=== PATIENT | male | born 1965 | race Caucasian/White ===

== ENCOUNTER 2023-08-27 23:07 | Emergency (ER) | payer OTHER, SELFPAY ==
[2023-08-27 23:12] VITALS: BP 146/96
[2023-08-27 23:41] VITALS: BMI 34.9
--- NOTE | 2023-08-28 00:56 | ED.MUSCINJ ---
HPI-Injury
General
Chief Complaint: Musculo-Skeletal Complaint
Source: patient
Time Seen by Provider: 08/28/23 00:09
Nursing documentation reviewed up to this point in time: agreed with
Travel History
Have you had any contact with someone who has COVID-19?: No
Do you have any symptoms of coronavirus? Fever > 100 degrees, chills, cough, shortness of breath, sore throat, loss of taste or smell, muscle aches, or headache?: No
History of Present Illness-Injury
Is pt an associate of [facility]?: No
Initial Injury comments:
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 He was working this evening when he tripped over a toddler who was crawling along the floor. He landed on his right knee and right elbow. He did hit his face on the carpet
but denies a direct strike. Denies any known head injury or loss of consciousness. He was concerned because he had right knee meniscal repair by Dr. Machado in the recent past. He is concerned because his the took the majority of the fall and now
hurts. Denies any other injury. Was able to ambulate and drive himself to the emergency department.
Past History
Past History
ED Past Medical History: None, HTN and Hypercholesterolemia
Social History
Personal: Single
Living: with family
Employment: Employed
Review of Systems
Review of Systems
Allergies reviewed?: Yes
All Other Systems: ROS reviewed and negative except as documented in HPI and ROS
Constitutional: Reports no symptoms
EENT: Reports no symptoms
Respiratory: Reports no symptoms
Cardiac: Reports no symptoms
ABD/GI: Reports no symptoms
: Reports no symptoms
Musculoskeletal: Reports joint swelling and muscle stiffness
Skin: Reports no symptoms
Neurological: Reports no symptoms
Endocrine: Reports no symptoms
Hematologic/Lymphatic: Reports no symptoms
Psychiatric: Reports no symptoms
Phy Exam
General Physical Exam
General Presentation: well appearing and mild distress
General age: appears stated age
General Skin: warm and dry
General Habitus: normal
General Mental: alert
Musculoskeletal Exam
Musculoskeletal Exam: full ROM, edema and joint swelling (Right knee)
Psychiatric Exam
Psychiatric Exam: normal mood/affect
Injury Course
Orders/Labs/Results
Orders:
Orders
08/28/23 00:34
Crutches-Treatment ONCE
Knee Immobilizer Right-Treatme ONCE
Knee, Right 4 or More Views [CR Knee- Right 4 Or More View*] Urgent
Comment:
Reason For Exam: fall
*Radiology
Radiology exam reviewed: preliminary read by ED provider
*Pulse Oximetry
Patient hypoxic: no
*Critical Care Note
Total Time (30-74mins, 75-104mins- exclusive of procedures): Not Applicable
ED Attending Note
-
Portions of this chart may have been created with voice recognition software.� Occasional wrong word or��sound alike� substitutions may have occurred due to the inherent limitations of voice recognition software.
Discharge Plan
Departure
Patient Disposition: Home (Routine Discharge)
Date of Disposition: 08/28/23
Time of Disposition: 00:59
Patient with high blood pressure during this ER visit?: Yes
Discharge Problem:
Contusion of knee, right
Instructions: How to Use Crutches, Muscle and Bone Pain (DC), Contusion (DC), BLOOD PRESSURE
Prescriptions:
No Action
lisinopril 20 MG tablet
20 mg PO DAILY
aspirin,buffd-calcium carb-mag 325 MG tablet
325 mg PO ONCE
hydrocodone-acetaminophen 5-325 mg tablet
1 tab PO Q4H PRN (Reason: Pain) Qty: 12 0RF
Referrals:
Juanjose Machado MD [Active] - Next open appointment
Alta Weber MD [Family Provider] -
Stand Alone Forms: Return to Work
Activity Restrictions/Additional Instructions:
It was a pleasure meeting you and taking part in your care. We hope for your continued healing and wellness.
Please read discharge instructions in their entirety. However, they are for general education and may not describe your exact diagnosis at discharge. Information on your ER visit and medical conditions were discussed with you along with appropriate
follow up information...
If indicated, please take your medications as instructed and indicated on discharge paperwork.
Please schedule a follow up appointment as directed. Call to schedule an appointment
Please return to the emergency department with ANY change in, persisting, or worsening of symptoms. If any of your symptoms do not improve, or persist, or become more severe within 6-12 hours, please return to the emergency department for further
care.
Please return to the emergency department if you develop a headache, neck pain/stiffness, fever greater than 100.4F, chest pain, shortness of breath, persistent nausea, vomiting, slurred speech, difficulty walking, numbness/tingling, weakness, signs
of infection or any other symptoms that are worrisome to you.
If you have any questions or concerns please do not hesitate to call the Hospital at or E-mail me directly at [email or web address]
Interventions
Interventions:
*Risk Screen - Suicide Last Done: 08/27/23 23:12
*General Assessment Last Done: 08/27/23 23:41
*Neglect/Abuse Screening Last Done: 08/27/23 23:12
ED- Fall Risk Assessment Last Done: 08/27/23 23:41
*ED COVID-19 Vaccine History Last Done: 08/27/23 23:41
ED-Musculoskeletal Assessment Last Done: 08/27/23 23:41
Discharge Date and Time
Print Language: POLISH
== END 2023-08-28 01:23 | disposition home or self-care (01) ==
LOC: EMR 23:07
PROVIDERS: EMERGENCY PHYSICIAN Student in an Organized Health Care Education/Training Program; FAMILY PHYSICIAN Family Medicine; REFERRING PHYSICIAN Internal Medicine Cardiovascular Disease
DX: S80.01XA Contusion of right knee, initial encounter (principal); M25.461 Effusion, right knee; S59.901A Unspecified injury of right elbow, initial encounter; W18.09XA Striking against other object with subsequent fall, initial encounter; Y93.89 Activity, other specified; Y92.511 Restaurant or cafe as the place of occurrence of the external cause; Y99.0 Civilian activity done for income or pay; I10 Essential (primary) hypertension; E78.00 Pure hypercholesterolemia, unspecified
CPT/HCPCS: 99283; 29505; 73564